=== PATIENT | female | born 1970 | race Caucasian/White ===

== ENCOUNTER 2016-06-16 01:19 | Inpatient (IN) | payer OTHER ==
[~2016-06-16] VITALS: Ht 165.1 cm; Wt 64.6 kg
[2016-06-16] VITALS (55 sets, daily range): BP systolic 72–122; BP diastolic 35–83
[~2016-06-16 01:19] MED LIST: ALPR1TAB2 PO; AMYL1CAP PO; ETOMIDATE 2MG/ML 10ML VIAL IV ONE; FURO-151 PO; INSLAN SQ; INSU100C3 SQ; OXYC-100 PO; PREG75CA PO; PROT40 PO; STERILE WATER FOR INJECTION 10ML VIAL ONE; SUCCINYLCHOLINE CHLORIDE 200MG/10ML VIAL IV ONE; VECURONIUM BROMIDE 10 MG/VIAL IV ONE; WARF5TAB76 PO; WARF7.5T22 PO
[2016-06-16] MEDS ORDERED: PROPOFOL 10MG/ML 100ML 100 ML IV ONE ×2 (01:54→02:00)
[2016-06-16] MEDS ORDERED: SODIUM CHLORIDE 0.9% 1,000 ML IV ONE ×2 (01:55→04:45)
[2016-06-16] MEDS ORDERED: ONDANSETRON HCL 4MG/2ML VIAL IV STA (01:55)
[2016-06-16] MEDS ORDERED: SUCCINYLCHOLINE CHLORIDE 200MG/10ML VIAL IV ONE (02:00)
[2016-06-16] MEDS ORDERED: ETOMIDATE 2MG/ML 10ML VIAL IV ONE (02:00)
[2016-06-16 02:18] LABS: BG BASE EXCESS -6.7 mmol/L (-2.0-2.0); BG CARBOXYHEMOGLOBIN 0.1 % (0.5-1.5); BG FRACTION INSPIRED OXYGEN 100; BG HCO3 ACT 19.6 mmol/L (22.0-26.0); BG METHEMOGLOBIN 0.2 % (0.0-1.5); BG OXYHEMOGLOBIN 96.7 % (94.0-97.0); BG PCO2 41.9 mmHg (35.0-45.0); BG PH 7.287 (7.350-7.450); BG PO2 262.9 mmHg (75.0-100.0); BG SAMPLE SITE RIGHT BRACHIAL; BG TIDAL VOLUME(mL) 500 mL; BG TOTAL HEMOGLOBIN 10.8 g/dL (12.0-18.0); BG VENT MODE VENT - A/C; BG VENT RATE 14 set
[2016-06-16 02:19] LABS: CLARITY URINE CLEAR (CLEAR); COLOR URINE YELLOW (YELLOW); GLUCOSE URINE NEGATIVE (NEGATIVE); KETONES URINE NEGATIVE (NEGATIVE); LEUKOCYTE ESTERASE URINE NEGATIVE (NEGATIVE); NITRITE URINE NEGATIVE (NEGATIVE); OCCULT BLOOD URINE NEGATIVE (NEGATIVE); PROTEIN URINE NEGATIVE (NEGATIVE); UROBILINOGEN URINE 0.2 E.U./dL (0.2-1.0)
[2016-06-16 02:25] LABS: BASOPHILS % 0.2 % (0.0-2.0); EOSINOPHILS % 0.6 % (0.0-5.0); HEMOGLOBIN. 10.4 g/dL (12.0-16.0); LYMPHOCYTES % 10.2 % (20.0-50.0); MEAN CORPUSCULAR HEMOGLOBIN 31.3 pg (28.0-32.0); MEAN CORPUSCULAR HGB CONC 32.7 g/dL (31.0-37.0); MEAN CORPUSCULAR VOLUME 95.8 fL (81.0-99.0); MEAN PLATELET VOLUME 9.4 fl (7.4-10.4); MONOCYTES % 5.4 % (2.0-8.0); NEUTROPHILS % 83.6 % (40.0-76.0); PLATELET 108 x1000/uL (130-400); RED BLOOD CELL COUNT 3.34 mill/uL (4.2-5.4); RED CELL DISTRIBUTION WIDTH 14.8 % (11.6-14.6); WHITE BLOOD COUNT 5.5 x1000/uL (4.5-11.0)
[2016-06-16 02:28] LABS: INR 1.7; PROTHROMBIN TIME 17.3 sec
[2016-06-16 02:31] LABS: AMMONIA 75 uMol/L (<32)
[2016-06-16 02:35] LABS: ACETAMINOPHEN 7 ug/mL (10-30); ALANINE AMINOTRANSFERASE 63 IU/L (13-61); ALBUMIN 3.1 g/dL (3.4-5.0); ANION GAP 13; CALCIUM 7.7 mg/dL (8.5-10.1); CARBON DIOXIDE 20 mEq/L (21-32); CHLORIDE 110 mEq/L (98-107); ETHANOL BLOOD < 10 mg/dL; INDEX HEMOLYSI 2 (1-3); INDEX ICTERIC 1 (1-4); INDEX LIPEMIC 1 (1-3); TROPONIN I 0.25 ng/mL (0.00-0.04); UREA NITROGEN BLOOD 13 mg/dL (7-21); eGFR > 60 mL/min (>60)
[2016-06-16 02:44] LABS: THYROID STIMULATING HORMONE 0.83 uIU/mL (0.36-3.74)
[2016-06-16 02:47] LABS: CREATINE KINASE 4500 IU/L (26-192); LACTIC ACID 2.4 mmol/L (0.4-2.0)
[2016-06-16 03:09] LABS: *AMPHETAMINES SCREEN URINE NEGATIVE (NEGATIVE); *BARBITURATES SCREEN URINE NEGATIVE (NEGATIVE); *COCAINE SCREEN URINE NEGATIVE (NEGATIVE); CANNABINOID URINE SCREEN NEGATIVE (NEGATIVE); ECSTASY MDMA SCREEN URINE NEGATIVE (NEGATIVE); METHADONE URINE SCREEN NEGATIVE (NEGATIVE); PHENCYCLIDINE URINE SCREEN NEGATIVE (NEGATIVE)
[2016-06-16 03:23] LABS: *BENZODIAZEPINES SCREEN URINE PRESUMTIVE POSITIVE (NEGATIVE); OPIATES URINE SCREEN PRESUMTIVE POSITIVE (NEGATIVE)
[2016-06-16] MEDS ORDERED: MAGNESIUM/ALUMINUM HYDROXIDE/SIMETHICONE 30ML UDC PO PRN (04:45)
[2016-06-16] MEDS ORDERED: ONDANSETRON HCL 4MG/2ML VIAL IV PRN (04:45)
[2016-06-16] MEDS ORDERED: GUAIFENESIN 200MG/10ML SUGAR FREE UDC PO PRN (04:45)
[2016-06-16] MEDS ORDERED: DOCUSATE SODIUM 100MG CAPSULE PO PRN (04:45)
[2016-06-16 05:32] LABS: CREATINE KINASE MB FRACTION 62.3 ng/mL (0.5-3.6); TROPONIN I 0.16 ng/mL (0.00-0.04)
[2016-06-16] MEDS ORDERED: DEXTROSE 50% WATER 50ML SYRINGE IV ONE (07:09)
[2016-06-16] MEDS ORDERED: DEXTROSE 50% WATER 50ML SYRINGE IV PRN ×2 (07:15)
[2016-06-16] MEDS ORDERED: PIPERACILLIN/TAZ 3.375G PREMIX 50 ML IV SCH (08:00)
[2016-06-16] MEDS ORDERED: VANCOMYCIN 1 G PREMIX 200 ML IV SCH (08:00)
[2016-06-16] MEDS: IPRATROPIUM/ALBUTEROL 0.5-3(2.5)MG/3ML NEB INH SCH ×4 (08:12→20:51)
[2016-06-16] MEDS: PROPOFOL 10MG/ML 100ML 100 ML IV PRN ×4 (08:16→21:27)
[2016-06-16] MEDS: PANTOPRAZOLE SODIUM 40 MG/VIAL IV SCH (08:22)
[2016-06-16] MEDS: ENOXAPARIN 40MG/0.4ML SYR SUBCUT SCH (08:22)
[2016-06-16] MEDS: DEXT 5%/0.45% NACL 1000ML 1,000 ML IV SCH ×4 (08:26→16:28)
[2016-06-16 08:31] LABS: BG BASE EXCESS -4.7 mmol/L (-2.0-2.0); BG CARBOXYHEMOGLOBIN 0.2 % (0.5-1.5); BG DEOXYHEMOGLOBIN 2.8 % (0.0-5.0); BG FRACTION INSPIRED OXYGEN 60; BG HCO3 ACT 19.2 mmol/L (22.0-26.0); BG METHEMOGLOBIN 0.3 % (0.0-1.5); BG OXYGEN SATURATION 97.2 % (92.0-98.5); BG OXYHEMOGLOBIN 96.7 % (94.0-97.0); BG PCO2 31.4 mmHg (35.0-45.0); BG PH 7.405 (7.350-7.450); BG PO2 269.2 mmHg (75.0-100.0); BG SAMPLE SITE RIGHT RADIAL; BG TIDAL VOLUME(mL) 500 mL; BG VENT MODE VENT - A/C; BG VENT RATE 14 set
[2016-06-16 09:32] LABS: T4 FREE 0.96 ng/dL (0.76-1.46)
[2016-06-16] MEDS: BLOOD SUGAR DIAGNOSTIC STRIP TEST SCH ×2 (12:00→18:00)
[2016-06-16] MEDS ORDERED: BLOOD SUGAR DIAGNOSTIC STRIP TEST SCH (12:00)
[2016-06-16] MEDS: INSULIN LISPRO 100 UNITS/ML SUBCUT SCH ×2 (12:00→18:21)
[2016-06-16 12:59] LABS: HEPATITIS B SURFACE ANTIGEN NEGATIVE
[2016-06-16 13:19] LABS: HEPATITIS B CORE AB IGM NEGATIVE; HEPATITIS C VIR.AB < 0.02 INDEXVAL (0.00-0.80)
[2016-06-16 13:21] LABS: HEPATITIS A AB IGM NEGATIVE (NEGATIVE)
[2016-06-16] MEDS: PIPERACILLIN/TAZ 3.375G PREMIX 50 ML IV SCH ×2 (13:37→21:24)
[2016-06-16] MEDS: ACETAMINOPHEN 325MG TABLET PO PRN (14:43)
[2016-06-16] MEDS ORDERED: FOLIC ACID 1 MG, THIAMINE HCL 100 MG, MVI, ADULT NO.1 10 ML in DEXTROSE 5% WATER 1,000 ML IV ONE ×4 (16:00)
[2016-06-16] MEDS ORDERED: SODIUM CHLORIDE 0.9% 500 ML IV NR (16:15)
[2016-06-16] MEDS: FENTANYL CITRATE/PF 500 MCG in SODIUM CHLORIDE 0.9% 40 ML IV PRN ×2 (16:29→22:07)
[2016-06-16] MEDS: VANCOMYCIN 1250MG in DEXTROSE 5% WATER 250ML IV SCH (17:48)
[2016-06-16 18:10] LABS: TROPONIN I 0.13 ng/mL (0.00-0.04)
[2016-06-16 18:16] LABS: CREATINE KINASE MB FRACTION 20.4 ng/mL (0.5-3.6)
[2016-06-16] MEDS ORDERED: NOREPINEPHRINE 8 MG in DEXT 5% WATER 242 ML IV PRN (18:58)
[2016-06-17] VITALS (94 sets, daily range): BP systolic 46–127; BP diastolic 22–97
[2016-06-17] MEDS: INSULIN LISPRO 100 UNITS/ML SUBCUT SCH ×5 (00:05→23:59)
[2016-06-17] MEDS: BLOOD SUGAR DIAGNOSTIC STRIP TEST SCH ×5 (00:12→23:56)
[2016-06-17] MEDS: IPRATROPIUM/ALBUTEROL 0.5-3(2.5)MG/3ML NEB INH SCH ×7 (00:49→23:30)
[2016-06-17] MEDS: FENTANYL CITRATE/PF 500 MCG in SODIUM CHLORIDE 0.9% 40 ML IV PRN ×4 (02:04→17:45)
[2016-06-17] MEDS: PROPOFOL 10MG/ML 100ML 100 ML IV PRN ×6 (03:02→23:43)
[2016-06-17] MEDS: VANCOMYCIN 1250MG in DEXTROSE 5% WATER 250ML IV SCH ×2 (05:28→17:53)
[2016-06-17] MEDS: PIPERACILLIN/TAZ 3.375G PREMIX 50 ML IV SCH (05:28)
[2016-06-17] MEDS: DEXT 5%/0.45% NACL 1000ML 1,000 ML IV SCH ×4 (05:48→20:16)
[2016-06-17 06:07] LABS: ALANINE AMINOTRANSFERASE 42 IU/L (13-61); ALBUMIN 2.4 g/dL (3.4-5.0); ANION GAP 13; BILIRUBIN DIRECT 0.2 mg/dL (0.0-0.2); CALCIUM 7.4 mg/dL (8.5-10.1); CARBON DIOXIDE 23 mEq/L (21-32); CHLORIDE 110 mEq/L (98-107); HDL CHOLESTEROL 23 mg/dL (40-59); INDEX HEMOLYSI 1 (1-3); INDEX ICTERIC 1 (1-4); INDEX LIPEMIC 1 (1-3); LDL CHOLESTEROL 31 mg/dL (5-100); TRIGLYCERIDE 65 mg/dL (0-150); UREA NITROGEN BLOOD 8 mg/dL (7-21); eGFR > 60 mL/min (>60)
[2016-06-17 07:25] LABS: BG BASE EXCESS -2.4 mmol/L (-2.0-2.0); BG CARBOXYHEMOGLOBIN 0.7 % (0.5-1.5); BG DEOXYHEMOGLOBIN 6.1 % (0.0-5.0); BG HCO3 ACT 21.3 mmol/L (22.0-26.0); BG METHEMOGLOBIN 0.2 % (0.0-1.5); BG OXYGEN SATURATION 93.8 % (92.0-98.5); BG PCO2 31.9 mmHg (35.0-45.0); BG PH 7.442 (7.350-7.450); BG PO2 77.2 mmHg (75.0-100.0); BG SAMPLE SITE RIGHT BRACHIAL; BG TIDAL VOLUME(mL) 500 mL; BG TOTAL HEMOGLOBIN 7.9 g/dL (12.0-18.0); BG VENT MODE VENT - A/C; BG VENT RATE 10 set
[2016-06-17 07:54] LABS: BASOPHILS % 0.6 % (0.0-2.0); EOSINOPHILS % 1.5 % (0.0-5.0); HEMOGLOBIN. 8.7 g/dL (12.0-16.0); LYMPHOCYTES % 22.2 % (20.0-50.0); MEAN CORPUSCULAR HEMOGLOBIN 31.1 pg (28.0-32.0); MEAN CORPUSCULAR HGB CONC 32.9 g/dL (31.0-37.0); MEAN CORPUSCULAR VOLUME 94.7 fL (81.0-99.0); MEAN PLATELET VOLUME 9.4 fl (7.4-10.4); MONOCYTES % 9.1 % (2.0-8.0); NEUTROPHILS % 66.6 % (40.0-76.0); PLATELET 81 x1000/uL (130-400); RED BLOOD CELL COUNT 2.79 mill/uL (4.2-5.4); RED CELL DISTRIBUTION WIDTH 15.4 % (11.6-14.6); WHITE BLOOD COUNT 5.3 x1000/uL (4.5-11.0)
[2016-06-17 08:04] LABS: HEMATOCRIT. 26.4 % (36.0-48.0)
[2016-06-17 08:18] LABS: MAGNESIUM 1.9 mg/dL (1.8-2.4); PHOSPHORUS 2.4 mg/dL (2.5-4.9)
[2016-06-17] MEDS: ENOXAPARIN 40MG/0.4ML SYR SUBCUT SCH (09:00)
[2016-06-17] MEDS ORDERED: CEFEPIME 1,000 MG in DEXTROSE 5% WATER 50 ML IV SCH (09:45)
[2016-06-17] MEDS: PANTOPRAZOLE SODIUM 40 MG/VIAL IV SCH (10:10)
[2016-06-17] MEDS: QUETIAPINE FUMARATE 25MG TABLET PO SCH ×2 (10:12→20:14)
[2016-06-17] MEDS: MEROPENEM 1000MG in NORMAL SALINE 100ML IV SCH ×2 (12:05→20:14)
[2016-06-18] VITALS (92 sets, daily range): BP systolic 89–151; BP diastolic 48–86
[2016-06-18] MEDS: FENTANYL CITRATE/PF 500 MCG in SODIUM CHLORIDE 0.9% 40 ML IV PRN ×4 (00:14→19:38)
[2016-06-18] MEDS: IPRATROPIUM/ALBUTEROL 0.5-3(2.5)MG/3ML NEB INH SCH ×6 (03:42→23:33)
[2016-06-18] MEDS: MEROPENEM 1000MG in NORMAL SALINE 100ML IV SCH ×3 (04:29→19:42)
[2016-06-18] MEDS: PROPOFOL 10MG/ML 100ML 100 ML IV PRN ×4 (04:30→23:16)
[2016-06-18] MEDS: DEXT 5%/0.45% NACL 1000ML 1,000 ML IV SCH ×6 (04:30→18:09)
[2016-06-18] MEDS: BLOOD SUGAR DIAGNOSTIC STRIP TEST SCH ×4 (05:06→23:20)
[2016-06-18] MEDS: VANCOMYCIN 1250MG in DEXTROSE 5% WATER 250ML IV SCH ×3 (05:16→21:04)
[2016-06-18] MEDS: INSULIN LISPRO 100 UNITS/ML SUBCUT SCH ×4 (05:16→23:35)
[2016-06-18 05:53] LABS: BASOPHILS % 0.3 % (0.0-2.0); EOSINOPHILS % 3.5 % (0.0-5.0); HEMATOCRIT. 24.5 % (36.0-48.0); HEMOGLOBIN. 8.2 g/dL (12.0-16.0); LYMPHOCYTES % 27.1 % (20.0-50.0); MEAN CORPUSCULAR HEMOGLOBIN 32.2 pg (28.0-32.0); MEAN CORPUSCULAR HGB CONC 33.5 g/dL (31.0-37.0); MEAN PLATELET VOLUME 9.3 fl (7.4-10.4); MONOCYTES % 8.7 % (2.0-8.0); NEUTROPHILS % 60.4 % (40.0-76.0); PLATELET 76 x1000/uL (130-400); RED BLOOD CELL COUNT 2.55 mill/uL (4.2-5.4); WHITE BLOOD COUNT 4.1 x1000/uL (4.5-11.0)
[2016-06-18 06:18] LABS: ALANINE AMINOTRANSFERASE 36 IU/L (13-61); ALBUMIN 2.2 g/dL (3.4-5.0); ANION GAP 10; BILIRUBIN DIRECT 0.2 mg/dL (0.0-0.2); CALCIUM 7.2 mg/dL (8.5-10.1); CARBON DIOXIDE 25 mEq/L (21-32); CHLORIDE 111 mEq/L (98-107); INDEX HEMOLYSI 1 (1-3); INDEX ICTERIC 1 (1-4); INDEX LIPEMIC 1 (1-3); UREA NITROGEN BLOOD 6 mg/dL (7-21); VANCOMYCIN TROUGH 8.8 ug/mL (5.0-10.0); eGFR > 60 mL/min (>60)
[2016-06-18] MEDS: PANTOPRAZOLE SODIUM 40 MG/VIAL IV SCH (08:54)
[2016-06-18] MEDS: QUETIAPINE FUMARATE 25MG TABLET PO SCH ×2 (08:55→20:50)
[2016-06-18] MEDS: ENOXAPARIN 40MG/0.4ML SYR SUBCUT SCH (09:00)
[2016-06-18] MEDS: ACETYLCYSTEINE 100MG/ML 10% VIAL 4ML INH SCH ×4 (11:54→23:33)
[2016-06-18] MEDS: SODIUM CHLORIDE 0.45% 1,000 ML IV SCH (20:50)
[2016-06-19] VITALS (46 sets, daily range): BP systolic 91–130; BP diastolic 52–85
[2016-06-19] MEDS: FENTANYL CITRATE/PF 500 MCG in SODIUM CHLORIDE 0.9% 40 ML IV PRN ×4 (03:07→20:06)
[2016-06-19] MEDS: PROPOFOL 10MG/ML 100ML 100 ML IV PRN ×6 (03:08→23:36)
[2016-06-19] MEDS: ACETYLCYSTEINE 100MG/ML 10% VIAL 4ML INH SCH ×5 (03:51→20:19)
[2016-06-19] MEDS: IPRATROPIUM/ALBUTEROL 0.5-3(2.5)MG/3ML NEB INH SCH ×5 (03:51→20:19)
[2016-06-19] MEDS: VANCOMYCIN 1250MG in DEXTROSE 5% WATER 250ML IV SCH ×2 (05:00→14:13)
[2016-06-19] MEDS: MEROPENEM 1000MG in NORMAL SALINE 100ML IV SCH ×2 (05:00→12:12)
[2016-06-19 05:48] LABS: BASOPHILS % 0.2 % (0.0-2.0); EOSINOPHILS % 5.2 % (0.0-5.0); HEMATOCRIT. 24.7 % (36.0-48.0); HEMOGLOBIN. 8.1 g/dL (12.0-16.0); LYMPHOCYTES % 26.9 % (20.0-50.0); MEAN CORPUSCULAR HEMOGLOBIN 31.3 pg (28.0-32.0); MEAN CORPUSCULAR VOLUME 94.6 fL (81.0-99.0); MEAN PLATELET VOLUME 9.2 fl (7.4-10.4); MONOCYTES % 6.7 % (2.0-8.0); PLATELET 82 x1000/uL (130-400); RED BLOOD CELL COUNT 2.61 mill/uL (4.2-5.4); RED CELL DISTRIBUTION WIDTH 14.7 % (11.6-14.6); WHITE BLOOD COUNT 3.4 x1000/uL (4.5-11.0)
[2016-06-19] MEDS: INSULIN LISPRO 100 UNITS/ML SUBCUT SCH ×3 (06:00→17:45)
[2016-06-19] MEDS: BLOOD SUGAR DIAGNOSTIC STRIP TEST SCH ×3 (06:33→17:49)
[2016-06-19 06:55] LABS: ALANINE AMINOTRANSFERASE 27 IU/L (13-61); ALBUMIN 2.2 g/dL (3.4-5.0); ANION GAP 12; BILIRUBIN DIRECT 0.3 mg/dL (0.0-0.2); CALCIUM 7.6 mg/dL (8.5-10.1); CARBON DIOXIDE 26 mEq/L (21-32); CHLORIDE 110 mEq/L (98-107); INDEX HEMOLYSI 1 (1-3); INDEX ICTERIC 1 (1-4); INDEX LIPEMIC 1 (1-3); TRIGLYCERIDE 80 mg/dL (0-150); eGFR > 60 mL/min (>60)
[2016-06-19 06:57] LABS: UREA NITROGEN BLOOD 4 mg/dL (7-21)
[2016-06-19] MEDS: ENOXAPARIN 40MG/0.4ML SYR SUBCUT SCH (09:00)
[2016-06-19] MEDS: QUETIAPINE FUMARATE 25MG TABLET PO SCH ×2 (09:23→20:00)
[2016-06-19] MEDS: SODIUM CHLORIDE 0.45% 1,000 ML IV SCH (09:23)
[2016-06-19] MEDS: PANTOPRAZOLE SODIUM 40 MG/VIAL IV SCH (09:23)
[2016-06-19 11:06] LABS: BG BASE EXCESS -1.4 mmol/L (-2.0-2.0); BG CARBOXYHEMOGLOBIN 0.3 % (0.5-1.5); BG DEOXYHEMOGLOBIN 5.3 % (0.0-5.0); BG FRACTION INSPIRED OXYGEN 30; BG HCO3 ACT 22.6 mmol/L (22.0-26.0); BG METHEMOGLOBIN 0.3 % (0.0-1.5); BG OXYGEN SATURATION 94.7 % (92.0-98.5); BG OXYHEMOGLOBIN 94.1 % (94.0-97.0); BG PCO2 34.8 mmHg (35.0-45.0); BG PO2 88.2 mmHg (75.0-100.0); BG SAMPLE SITE RIGHT RADIAL; BG TIDAL VOLUME(mL) 500 mL; BG TOTAL HEMOGLOBIN 8.3 g/dL (12.0-18.0); BG VENT MODE VENT - A/C; BG VENT RATE 10 set
[2016-06-19] MEDS: LEVOFLOXACIN 500MG PREMIX 100 ML IV SCH (17:05)
[2016-06-19] MEDS: DOCUSATE SODIUM 250MG CAPSULE PO SCH (18:41)
[2016-06-19] MEDS: METRONIDAZOLE 500 MG PREMIX 100 ML IV SCH (20:00)
[2016-06-20] VITALS (41 sets, daily range): BP systolic 87–145; BP diastolic 48–84
[2016-06-20] MEDS: BLOOD SUGAR DIAGNOSTIC STRIP TEST SCH ×5 (00:05→23:39)
[2016-06-20] MEDS: INSULIN LISPRO 100 UNITS/ML SUBCUT SCH ×5 (00:11→23:40)
[2016-06-20] MEDS: IPRATROPIUM/ALBUTEROL 0.5-3(2.5)MG/3ML NEB INH SCH ×6 (00:14→20:45)
[2016-06-20] MEDS: SODIUM CHLORIDE 0.45% 1,000 ML IV SCH ×2 (00:14→12:34)
[2016-06-20] MEDS: ACETYLCYSTEINE 100MG/ML 10% VIAL 4ML INH SCH ×6 (00:15→20:46)
[2016-06-20] MEDS: FENTANYL CITRATE/PF 500 MCG in SODIUM CHLORIDE 0.9% 40 ML IV PRN ×2 (01:39→07:42)
[2016-06-20] MEDS: PROPOFOL 10MG/ML 100ML 100 ML IV PRN ×3 (04:27→21:31)
[2016-06-20 05:38] LABS: BASOPHILS % 0.4 % (0.0-2.0); EOSINOPHILS % 4.4 % (0.0-5.0); HEMOGLOBIN. 8.3 g/dL (12.0-16.0); LYMPHOCYTES % 25.3 % (20.0-50.0); MEAN CORPUSCULAR HEMOGLOBIN 31.3 pg (28.0-32.0); MEAN CORPUSCULAR HGB CONC 33.2 g/dL (31.0-37.0); MEAN CORPUSCULAR VOLUME 94.2 fL (81.0-99.0); MEAN PLATELET VOLUME 8.8 fl (7.4-10.4); MONOCYTES % 8.5 % (2.0-8.0); NEUTROPHILS % 61.4 % (40.0-76.0); PLATELET 79 x1000/uL (130-400); RED BLOOD CELL COUNT 2.65 mill/uL (4.2-5.4); RED CELL DISTRIBUTION WIDTH 14.4 % (11.6-14.6); WHITE BLOOD COUNT 3.3 x1000/uL (4.5-11.0)
[2016-06-20 05:41] LABS: INR 1.2; PROTHROMBIN TIME 12.6 sec
[2016-06-20 06:05] LABS: ANION GAP 12; CALCIUM 7.9 mg/dL (8.5-10.1); CARBON DIOXIDE 27 mEq/L (21-32); CHLORIDE 107 mEq/L (98-107); INDEX HEMOLYSI 1 (1-3); INDEX ICTERIC 1 (1-4); INDEX LIPEMIC 1 (1-3); TRIGLYCERIDE 91 mg/dL (0-150); UREA NITROGEN BLOOD 6 mg/dL (7-21); eGFR > 60 mL/min (>60)
[2016-06-20 08:05] LABS: BG BASE EXCESS 2.8 mmol/L (-2.0-2.0); BG CARBOXYHEMOGLOBIN 0.3 % (0.5-1.5); BG DEOXYHEMOGLOBIN 3.6 % (0.0-5.0); BG FRACTION INSPIRED OXYGEN 30; BG HCO3 ACT 27.2 mmol/L (22.0-26.0); BG METHEMOGLOBIN 0.3 % (0.0-1.5); BG OXYGEN SATURATION 96.4 % (92.0-98.5); BG OXYHEMOGLOBIN 95.8 % (94.0-97.0); BG PCO2 40.8 mmHg (35.0-45.0); BG PH 7.441 (7.350-7.450); BG PO2 132.6 mmHg (75.0-100.0); BG SAMPLE SITE LEFT BRACHIAL; BG TIDAL VOLUME(mL) 550 mL; BG VENT MODE VENT - A/C; BG VENT RATE 10 set
[2016-06-20] MEDS: QUETIAPINE FUMARATE 25MG TABLET PO SCH ×2 (08:40→20:09)
[2016-06-20] MEDS: METRONIDAZOLE 500 MG PREMIX 100 ML IV SCH ×2 (08:40→20:09)
[2016-06-20] MEDS: PANTOPRAZOLE SODIUM 40 MG/VIAL IV SCH (08:40)
[2016-06-20] MEDS: DOCUSATE SODIUM 250MG CAPSULE PO SCH ×2 (08:40→17:00)
[2016-06-20] MEDS: ENOXAPARIN 40MG/0.4ML SYR SUBCUT SCH (09:00)
[2016-06-20] MEDS ORDERED: MORPHINE SULFATE 2 MG/ML CPJ (NOT FOR IM USE) IV PRN ×2 (09:15)
[2016-06-20] MEDS: LORAZEPAM 2MG/ML CPJ IV PRN ×2 (10:25→23:05)
[2016-06-20 11:30] LABS: INDEX HEMOLYSI 1 (1-3); INDEX ICTERIC 1 (1-4); INDEX LIPEMIC 1 (1-3); IRON 35 ug/dL (50-175); TOTAL IRON BINDING CAPACITY 238 ug/dL (250-450)
[2016-06-20 12:00] LABS: FOLIC ACID (FOLATE) SERUM 19.8 ng/mL (>5.38)
[2016-06-20] MEDS: OXYCODONE HCL/ACETAMINOPHEN 5/325MG TABLET PO PRN ×2 (15:04→20:31)
[2016-06-20] MEDS: LEVOFLOXACIN 500MG PREMIX 100 ML IV SCH (17:20)
[2016-06-21] VITALS (56 sets, daily range): BP systolic 91–142; BP diastolic 51–90
[2016-06-21] MEDS ORDERED: PROPOFOL 10MG/ML 100ML 100 ML IV PRN
[2016-06-21] MEDS: ACETYLCYSTEINE 100MG/ML 10% VIAL 4ML INH SCH ×6 (00:44→20:14)
[2016-06-21] MEDS: IPRATROPIUM/ALBUTEROL 0.5-3(2.5)MG/3ML NEB INH SCH ×6 (00:45→20:13)
[2016-06-21] MEDS: SODIUM CHLORIDE 0.45% 1,000 ML IV SCH ×2 (03:36→16:52)
[2016-06-21] MEDS: OXYCODONE HCL/ACETAMINOPHEN 5/325MG TABLET PO PRN ×3 (03:54→13:36)
[2016-06-21] MEDS: BLOOD SUGAR DIAGNOSTIC STRIP TEST SCH ×4 (05:17→23:28)
[2016-06-21] MEDS: INSULIN LISPRO 100 UNITS/ML SUBCUT SCH ×4 (05:17→23:31)
[2016-06-21] MEDS: LORAZEPAM 2MG/ML CPJ IV PRN ×2 (06:26→22:14)
[2016-06-21] MEDS: PANTOPRAZOLE SODIUM 40 MG/VIAL IV SCH (08:20)
[2016-06-21] MEDS: QUETIAPINE FUMARATE 25MG TABLET PO SCH ×2 (08:21→20:04)
[2016-06-21] MEDS: METRONIDAZOLE 500 MG PREMIX 100 ML IV SCH ×2 (08:21→20:04)
[2016-06-21] MEDS: DOCUSATE SODIUM 250MG CAPSULE PO SCH (08:23)
[2016-06-21] MEDS: ENOXAPARIN 40MG/0.4ML SYR SUBCUT SCH (08:24)
[2016-06-21 08:28] LABS: BASOPHILS % 0.4 % (0.0-2.0); EOSINOPHILS % 4.1 % (0.0-5.0); LYMPHOCYTES % 24.4 % (20.0-50.0); MEAN CORPUSCULAR HEMOGLOBIN 31.2 pg (28.0-32.0); MEAN CORPUSCULAR HGB CONC 33.4 g/dL (31.0-37.0); MEAN CORPUSCULAR VOLUME 93.4 fL (81.0-99.0); MEAN PLATELET VOLUME 9.4 fl (7.4-10.4); MONOCYTES % 8.3 % (2.0-8.0); NEUTROPHILS % 62.8 % (40.0-76.0); PLATELET 81 x1000/uL (130-400); RED BLOOD CELL COUNT 2.57 mill/uL (4.2-5.4); RED CELL DISTRIBUTION WIDTH 14.2 % (11.6-14.6); WHITE BLOOD COUNT 2.8 x1000/uL (4.5-11.0)
[2016-06-21] MEDS: PROPOFOL 10MG/ML 100ML 100 ML IV PRN ×3 (10:31→23:18)
[2016-06-21 10:55] LABS: BG BASE EXCESS -0.4 mmol/L (-2.0-2.0); BG CARBOXYHEMOGLOBIN 0.3 % (0.5-1.5); BG FRACTION INSPIRED OXYGEN 30; BG HCO3 ACT 23.4 mmol/L (22.0-26.0); BG METHEMOGLOBIN 0.3 % (0.0-1.5); BG OXYHEMOGLOBIN 95.4 % (94.0-97.0); BG PCO2 34.4 mmHg (35.0-45.0); BG PO2 117.3 mmHg (75.0-100.0); BG SAMPLE SITE LEFT RADIAL; BG TIDAL VOLUME(mL) 500 mL; BG TOTAL HEMOGLOBIN 8.4 g/dL (12.0-18.0); BG VENT MODE VENT - A/C; BG VENT RATE 10 set
[2016-06-21 11:16] LABS: ANION GAP 13; CALCIUM 7.9 mg/dL (8.5-10.1); CARBON DIOXIDE 26 mEq/L (21-32); CHLORIDE 110 mEq/L (98-107); INDEX HEMOLYSI 1 (1-3); INDEX ICTERIC 1 (1-4); INDEX LIPEMIC 1 (1-3); UREA NITROGEN BLOOD 9 mg/dL (7-21); eGFR > 60 mL/min (>60)
[2016-06-21] MEDS: LEVOFLOXACIN 500MG PREMIX 100 ML IV SCH (16:54)
[2016-06-21] MEDS ORDERED: DOCUSATE SODIUM SUGAR FREE 100MG/10ML UDC PO SCH (17:00)
[2016-06-22] VITALS (58 sets, daily range): BP systolic 106–154; BP diastolic 64–93
[2016-06-22] MEDS: ACETYLCYSTEINE 100MG/ML 10% VIAL 4ML INH SCH ×7 (00:09→23:50)
[2016-06-22] MEDS: IPRATROPIUM/ALBUTEROL 0.5-3(2.5)MG/3ML NEB INH SCH ×7 (00:09→23:50)
[2016-06-22] MEDS: PROPOFOL 10MG/ML 100ML 100 ML IV PRN ×3 (03:05→20:51)
[2016-06-22 05:00] LABS: BASOPHILS % 0.7 % (0.0-2.0); EOSINOPHILS % 6.5 % (0.0-5.0); HEMATOCRIT. 23.5 % (36.0-48.0); HEMOGLOBIN. 7.7 g/dL (12.0-16.0); LYMPHOCYTES % 23.9 % (20.0-50.0); MEAN CORPUSCULAR HEMOGLOBIN 30.7 pg (28.0-32.0); MEAN CORPUSCULAR HGB CONC 32.8 g/dL (31.0-37.0); MEAN CORPUSCULAR VOLUME 93.7 fL (81.0-99.0); MEAN PLATELET VOLUME 8.8 fl (7.4-10.4); MONOCYTES % 8.4 % (2.0-8.0); NEUTROPHILS % 60.5 % (40.0-76.0); PLATELET 83 x1000/uL (130-400); RED BLOOD CELL COUNT 2.51 mill/uL (4.2-5.4); RED CELL DISTRIBUTION WIDTH 14.2 % (11.6-14.6); WHITE BLOOD COUNT 2.4 x1000/uL (4.5-11.0)
[2016-06-22] MEDS: SODIUM CHLORIDE 0.45% 1,000 ML IV SCH ×2 (05:09→18:15)
[2016-06-22] MEDS: BLOOD SUGAR DIAGNOSTIC STRIP TEST SCH ×3 (05:17→18:17)
[2016-06-22 05:22] LABS: ANION GAP 11; CALCIUM 7.9 mg/dL (8.5-10.1); CARBON DIOXIDE 27 mEq/L (21-32); CHLORIDE 109 mEq/L (98-107); INDEX HEMOLYSI 1 (1-3); INDEX ICTERIC 1 (1-4); INDEX LIPEMIC 1 (1-3); TRIGLYCERIDE 119 mg/dL (0-150); UREA NITROGEN BLOOD 12 mg/dL (7-21); eGFR > 60 mL/min (>60)
[2016-06-22] MEDS: INSULIN LISPRO 100 UNITS/ML SUBCUT SCH ×3 (05:23→18:41)
[2016-06-22] MEDS: OXYCODONE HCL/ACETAMINOPHEN 5/325MG TABLET PO PRN (05:38)
[2016-06-22] MEDS: ENOXAPARIN 40MG/0.4ML SYR SUBCUT SCH (09:00)
[2016-06-22] MEDS: PANTOPRAZOLE SODIUM 40 MG/VIAL IV SCH (09:06)
[2016-06-22] MEDS: DOCUSATE SODIUM SUGAR FREE 100MG/10ML UDC NG SCH ×2 (09:07→18:13)
[2016-06-22] MEDS: QUETIAPINE FUMARATE 25MG TABLET PO SCH ×2 (09:07→20:52)
[2016-06-22] MEDS: METRONIDAZOLE 500 MG PREMIX 100 ML IV SCH ×2 (09:07→20:51)
[2016-06-22] MEDS: LORAZEPAM 2MG/ML CPJ IV PRN (09:48)
[2016-06-22] MEDS: ACETAMINOPHEN 325MG TABLET PO PRN (15:11)
[2016-06-22 15:32] LABS: BG BASE EXCESS -0.3 mmol/L (-2.0-2.0); BG CARBOXYHEMOGLOBIN 0.2 % (0.5-1.5); BG DEOXYHEMOGLOBIN 4.7 % (0.0-5.0); BG FRACTION INSPIRED OXYGEN 30; BG HCO3 ACT 23.2 mmol/L (22.0-26.0); BG METHEMOGLOBIN 0.3 % (0.0-1.5); BG OXYGEN SATURATION 95.3 % (92.0-98.5); BG OXYHEMOGLOBIN 94.8 % (94.0-97.0); BG PCO2 33.3 mmHg (35.0-45.0); BG PH 7.461 (7.350-7.450); BG PO2 91.3 mmHg (75.0-100.0); BG PRESSURE SUPPORT 10; BG SAMPLE SITE RIGHT RADIAL; BG TIDAL VOLUME(mL) 500 mL; BG TOTAL HEMOGLOBIN 8.8 g/dL (12.0-18.0); BG VENT MODE VENT - SIMV; BG VENT RATE 8 set
[2016-06-22] MEDS: LEVOFLOXACIN 500MG PREMIX 100 ML IV SCH (18:17)
[2016-06-23] VITALS (46 sets, daily range): BP systolic 99–160; BP diastolic 59–98
[2016-06-23] MEDS: BLOOD SUGAR DIAGNOSTIC STRIP TEST SCH ×4 (00:48→17:48)
[2016-06-23] MEDS: INSULIN LISPRO 100 UNITS/ML SUBCUT SCH ×5 (00:53→22:21)
[2016-06-23] MEDS: ACETAMINOPHEN 325MG TABLET PO PRN (01:11)
[2016-06-23] MEDS: PROPOFOL 10MG/ML 100ML 100 ML IV PRN ×2 (01:11→06:57)
[2016-06-23] MEDS: IPRATROPIUM/ALBUTEROL 0.5-3(2.5)MG/3ML NEB INH SCH ×5 (04:01→20:13)
[2016-06-23] MEDS: ACETYLCYSTEINE 100MG/ML 10% VIAL 4ML INH SCH ×3 (04:02→12:13)
[2016-06-23 06:08] LABS: BG BASE EXCESS 0.5 mmol/L (-2.0-2.0); BG CARBOXYHEMOGLOBIN 0.9 % (0.5-1.5); BG DEOXYHEMOGLOBIN 12.6 % (0.0-5.0); BG FRACTION INSPIRED OXYGEN 30; BG HCO3 ACT 24.1 mmol/L (22.0-26.0); BG METHEMOGLOBIN 0.3 % (0.0-1.5); BG OXYGEN SATURATION 87.2 % (92.0-98.5); BG OXYHEMOGLOBIN 86.2 % (94.0-97.0); BG PCO2 34.4 mmHg (35.0-45.0); BG PH 7.464 (7.350-7.450); BG PO2 54.5 mmHg (75.0-100.0); BG PRESSURE SUPPORT 10; BG SAMPLE SITE RIGHT RADIAL; BG TOTAL HEMOGLOBIN 8.2 g/dL (12.0-18.0); BG VENT MODE VENT - CPAP
[2016-06-23 07:36] LABS: BASOPHILS % 0.6 % (0.0-2.0); HEMATOCRIT. 24.4 % (36.0-48.0); HEMOGLOBIN. 8.1 g/dL (12.0-16.0); LYMPHOCYTES % 21.1 % (20.0-50.0); MEAN CORPUSCULAR HGB CONC 33.1 g/dL (31.0-37.0); MEAN CORPUSCULAR VOLUME 93.6 fL (81.0-99.0); MEAN PLATELET VOLUME 8.7 fl (7.4-10.4); MONOCYTES % 8.4 % (2.0-8.0); NEUTROPHILS % 66.9 % (40.0-76.0); PLATELET 88 x1000/uL (130-400); RED BLOOD CELL COUNT 2.61 mill/uL (4.2-5.4); RED CELL DISTRIBUTION WIDTH 14.3 % (11.6-14.6); WHITE BLOOD COUNT 2.7 x1000/uL (4.5-11.0)
[2016-06-23 07:47] LABS: ANION GAP 13; CARBON DIOXIDE 25 mEq/L (21-32); CHLORIDE 109 mEq/L (98-107); INDEX HEMOLYSI 1 (1-3); INDEX ICTERIC 1 (1-4); INDEX LIPEMIC 1 (1-3); UREA NITROGEN BLOOD 10 mg/dL (7-21); eGFR > 60 mL/min (>60)
[2016-06-23] MEDS ORDERED: DEXTROSE 50% WATER 50ML SYRINGE IV PRN (09:00)
[2016-06-23] MEDS: ENOXAPARIN 40MG/0.4ML SYR SUBCUT SCH (09:00)
[2016-06-23] MEDS: QUETIAPINE FUMARATE 25MG TABLET PO SCH ×2 (09:17→20:29)
[2016-06-23] MEDS: PANTOPRAZOLE SODIUM 40 MG/VIAL IV SCH (09:17)
[2016-06-23] MEDS: SODIUM CHLORIDE 0.45% 1,000 ML IV SCH (09:18)
[2016-06-23] MEDS: METRONIDAZOLE 500 MG PREMIX 100 ML IV SCH ×2 (09:18→20:29)
[2016-06-23] MEDS: DOCUSATE SODIUM SUGAR FREE 100MG/10ML UDC NG SCH ×2 (09:18→16:18)
[2016-06-23 11:26] LABS: BG BASE EXCESS 0.1 mmol/L (-2.0-2.0); BG CARBOXYHEMOGLOBIN 0.3 % (0.5-1.5); BG DEOXYHEMOGLOBIN 2.8 % (0.0-5.0); BG FRACTION INSPIRED OXYGEN 40; BG HCO3 ACT 23.5 mmol/L (22.0-26.0); BG METHEMOGLOBIN 0.3 % (0.0-1.5); BG OXYGEN SATURATION 97.2 % (92.0-98.5); BG OXYHEMOGLOBIN 96.6 % (94.0-97.0); BG PCO2 32.8 mmHg (35.0-45.0); BG PH 7.473 (7.350-7.450); BG PRESSURE SUPPORT 8; BG SAMPLE SITE RIGHT RADIAL; BG TOTAL HEMOGLOBIN 8.5 g/dL (12.0-18.0); BG VENT MODE VENT - CPAP
[2016-06-23] MEDS: LORAZEPAM 2MG/ML CPJ IV PRN ×2 (12:15→20:31)
[2016-06-23] MEDS ORDERED: BLOOD SUGAR DIAGNOSTIC STRIP TEST SCH (12:50)
[2016-06-23] MEDS: LEVOFLOXACIN 500MG PREMIX 100 ML IV SCH (16:18)
[2016-06-24] VITALS (34 sets, daily range): BP systolic 98–156; BP diastolic 53–114
[2016-06-24] MEDS: IPRATROPIUM/ALBUTEROL 0.5-3(2.5)MG/3ML NEB INH SCH ×6 (00:15→20:42)
[2016-06-24] MEDS ORDERED: NOREPINEPHRINE 16 MG in DEXT 5% WATER 234 ML IV PRN (00:45)
[2016-06-24] MEDS ORDERED: SODIUM CHLORIDE 0.9% 500 ML IV ONE (00:45)
[2016-06-24] MEDS: BLOOD SUGAR DIAGNOSTIC STRIP TEST SCH ×5 (00:48→20:25)
[2016-06-24] MEDS: LORAZEPAM 2MG/ML CPJ IV PRN ×3 (02:01→23:40)
[2016-06-24] MEDS: OXYCODONE HCL/ACETAMINOPHEN 5/325MG TABLET PO PRN ×3 (04:54→20:57)
[2016-06-24] MEDS: INSULIN LISPRO 100 UNITS/ML SUBCUT SCH ×4 (06:06→20:53)
[2016-06-24 06:08] LABS: BASOPHILS % 0.6 % (0.0-2.0); EOSINOPHILS % 1.8 % (0.0-5.0); HEMATOCRIT. 24.5 % (36.0-48.0); HEMOGLOBIN. 8.1 g/dL (12.0-16.0); LYMPHOCYTES % 23.2 % (20.0-50.0); MEAN CORPUSCULAR HEMOGLOBIN 31.1 pg (28.0-32.0); MEAN CORPUSCULAR HGB CONC 33.2 g/dL (31.0-37.0); MEAN CORPUSCULAR VOLUME 93.5 fL (81.0-99.0); MEAN PLATELET VOLUME 9.5 fl (7.4-10.4); MONOCYTES % 7.7 % (2.0-8.0); NEUTROPHILS % 66.7 % (40.0-76.0); PLATELET 92 x1000/uL (130-400); RED BLOOD CELL COUNT 2.62 mill/uL (4.2-5.4); RED CELL DISTRIBUTION WIDTH 13.9 % (11.6-14.6); WHITE BLOOD COUNT 3.6 x1000/uL (4.5-11.0)
[2016-06-24 07:11] LABS: ANION GAP 12; CALCIUM 8.1 mg/dL (8.5-10.1); CARBON DIOXIDE 28 mEq/L (21-32); CHLORIDE 107 mEq/L (98-107); CREATINE KINASE 83 IU/L (26-192); INDEX HEMOLYSI 1 (1-3); INDEX ICTERIC 1 (1-4); INDEX LIPEMIC 1 (1-3); PHOSPHORUS 2.4 mg/dL (2.5-4.9); UREA NITROGEN BLOOD 9 mg/dL (7-21)
[2016-06-24 07:12] LABS: eGFR > 60 mL/min (>60)
[2016-06-24] MEDS ORDERED: POTASSIUM CHLORIDE 20MEQ TABLET SR PO NR (08:15)
[2016-06-24] MEDS: QUETIAPINE FUMARATE 25MG TABLET PO SCH ×2 (08:56→20:21)
[2016-06-24] MEDS: METRONIDAZOLE 500 MG PREMIX 100 ML IV SCH (08:56)
[2016-06-24] MEDS: DOCUSATE SODIUM SUGAR FREE 100MG/10ML UDC NG SCH ×3 (08:56→16:53)
[2016-06-24] MEDS: PANTOPRAZOLE SODIUM 40 MG/VIAL IV SCH (08:56)
[2016-06-24] MEDS: ENOXAPARIN 40MG/0.4ML SYR SUBCUT SCH (08:57)
[2016-06-24] MEDS ORDERED: POTASSIUM CHLORIDE 20 MEQ/PACKET GT SCH (09:00)
[2016-06-24 11:08] LABS: BG BASE EXCESS -0.5 mmol/L (-2.0-2.0); BG CARBOXYHEMOGLOBIN 0.3 % (0.5-1.5); BG DEOXYHEMOGLOBIN 2.9 % (0.0-5.0); BG FRACTION INSPIRED OXYGEN 40; BG HCO3 ACT 23.3 mmol/L (22.0-26.0); BG METHEMOGLOBIN 0.3 % (0.0-1.5); BG OXYGEN SATURATION 97.1 % (92.0-98.5); BG OXYHEMOGLOBIN 96.5 % (94.0-97.0); BG PCO2 34.6 mmHg (35.0-45.0); BG PH 7.446 (7.350-7.450); BG PO2 162.3 mmHg (75.0-100.0); BG PRESSURE SUPPORT 8; BG SAMPLE SITE LEFT BRACHIAL; BG TOTAL HEMOGLOBIN 8.2 g/dL (12.0-18.0); BG VENT MODE VENT - CPAP
[2016-06-24] MEDS: SODIUM CHLORIDE 0.45% 1,000 ML IV SCH (13:37)
[2016-06-25] VITALS (35 sets, daily range): BP systolic 102–159; BP diastolic 51–119
[2016-06-25] MEDS: IPRATROPIUM/ALBUTEROL 0.5-3(2.5)MG/3ML NEB INH SCH ×6 (00:16→20:34)
[2016-06-25] MEDS: OXYCODONE HCL/ACETAMINOPHEN 5/325MG TABLET PO PRN (03:42)
[2016-06-25 06:01] LABS: BASOPHILS % 0.5 % (0.0-2.0); EOSINOPHILS % 4.1 % (0.0-5.0); HEMATOCRIT. 24.2 % (36.0-48.0); HEMOGLOBIN. 8.2 g/dL (12.0-16.0); LYMPHOCYTES % 22.9 % (20.0-50.0); MEAN CORPUSCULAR HEMOGLOBIN 31.3 pg (28.0-32.0); MEAN CORPUSCULAR HGB CONC 33.7 g/dL (31.0-37.0); MEAN PLATELET VOLUME 9.4 fl (7.4-10.4); MONOCYTES % 6.4 % (2.0-8.0); NEUTROPHILS % 66.1 % (40.0-76.0); PLATELET 93 x1000/uL (130-400); RED CELL DISTRIBUTION WIDTH 14.2 % (11.6-14.6); WHITE BLOOD COUNT 3.3 x1000/uL (4.5-11.0)
[2016-06-25 06:27] LABS: ANION GAP 12; CARBON DIOXIDE 28 mEq/L (21-32); CHLORIDE 106 mEq/L (98-107); INDEX HEMOLYSI 1 (1-3); INDEX ICTERIC 1 (1-4); INDEX LIPEMIC 1 (1-3); UREA NITROGEN BLOOD 8 mg/dL (7-21); eGFR > 60 mL/min (>60)
[2016-06-25] MEDS: LORAZEPAM 2MG/ML CPJ IV PRN (06:35)
[2016-06-25] MEDS: BLOOD SUGAR DIAGNOSTIC STRIP TEST SCH ×4 (07:25→21:08)
[2016-06-25] MEDS ORDERED: POTASSIUM CHLORIDE 20 MEQ/PACKET NG NR (08:00)
[2016-06-25] MEDS: INSULIN LISPRO 100 UNITS/ML SUBCUT SCH ×4 (08:24→21:13)
[2016-06-25] MEDS: DOCUSATE SODIUM SUGAR FREE 100MG/10ML UDC NG SCH ×2 (08:26→16:20)
[2016-06-25] MEDS: PANTOPRAZOLE SODIUM 40 MG/VIAL IV SCH (08:26)
[2016-06-25] MEDS: QUETIAPINE FUMARATE 25MG TABLET PO SCH (08:26)
[2016-06-25] MEDS: ENOXAPARIN 40MG/0.4ML SYR SUBCUT SCH (08:26)
[2016-06-25] MEDS: SODIUM CHLORIDE 0.45% 1,000 ML IV SCH (10:12)
[2016-06-25] MEDS: DIPHENHYDRAMINE 50MG/ML VIAL IV PRN (21:13)
[2016-06-26] VITALS (25 sets, daily range): BP systolic 119–163; BP diastolic 65–92
[2016-06-26] MEDS: IPRATROPIUM/ALBUTEROL 0.5-3(2.5)MG/3ML NEB INH SCH ×6 (00:23→21:36)
[2016-06-26] MEDS: DIPHENHYDRAMINE 50MG/ML VIAL IV PRN ×2 (01:21→22:27)
[2016-06-26 06:15] LABS: ANION GAP 13; CALCIUM 8.2 mg/dL (8.5-10.1); CARBON DIOXIDE 28 mEq/L (21-32); CHLORIDE 105 mEq/L (98-107); INDEX HEMOLYSI 1 (1-3); INDEX ICTERIC 1 (1-4); INDEX LIPEMIC 1 (1-3); UREA NITROGEN BLOOD 5 mg/dL (7-21); eGFR > 60 mL/min (>60)
[2016-06-26] MEDS: BLOOD SUGAR DIAGNOSTIC STRIP TEST SCH ×4 (07:40→21:24)
[2016-06-26] MEDS: PANTOPRAZOLE SODIUM 40 MG/VIAL IV SCH (08:33)
[2016-06-26] MEDS: DOCUSATE SODIUM SUGAR FREE 100MG/10ML UDC NG SCH ×2 (08:33→17:18)
[2016-06-26] MEDS: INSULIN LISPRO 100 UNITS/ML SUBCUT SCH ×4 (08:35→21:37)
[2016-06-26] MEDS: SODIUM CHLORIDE 0.45% 1,000 ML IV SCH ×2 (09:00→22:38)
[2016-06-26] MEDS ORDERED: ENOXAPARIN 40MG/0.4ML SYR SUBCUT SCH (09:00)
[2016-06-26] MEDS: OXYCODONE HCL/ACETAMINOPHEN 5/325MG TABLET PO PRN ×2 (10:15→16:10)
[2016-06-27] VITALS (14 sets, daily range): BP systolic 118–153; BP diastolic 72–95
[2016-06-27] MEDS: OXYCODONE HCL/ACETAMINOPHEN 5/325MG TABLET PO PRN ×2 (00:33→07:48)
[2016-06-27] MEDS: IPRATROPIUM/ALBUTEROL 0.5-3(2.5)MG/3ML NEB INH SCH ×6 (00:59→21:18)
[2016-06-27] MEDS: DIPHENHYDRAMINE 50MG/ML VIAL IV PRN ×2 (02:29→22:54)
[2016-06-27] MEDS: BLOOD SUGAR DIAGNOSTIC STRIP TEST SCH ×4 (05:52→21:39)
[2016-06-27 06:39] LABS: ANION GAP 12; CALCIUM 8.2 mg/dL (8.5-10.1); CARBON DIOXIDE 28 mEq/L (21-32); CHLORIDE 103 mEq/L (98-107); INDEX HEMOLYSI 1 (1-3); INDEX ICTERIC 1 (1-4); INDEX LIPEMIC 1 (1-3); eGFR > 60 mL/min (>60)
[2016-06-27 06:48] LABS: BASOPHILS % 0.3 % (0.0-2.0); EOSINOPHILS % 2.9 % (0.0-5.0); HEMATOCRIT. 24.5 % (36.0-48.0); HEMOGLOBIN. 8.2 g/dL (12.0-16.0); LYMPHOCYTES % 25.5 % (20.0-50.0); MEAN CORPUSCULAR HEMOGLOBIN 31.2 pg (28.0-32.0); MEAN CORPUSCULAR HGB CONC 33.6 g/dL (31.0-37.0); MEAN CORPUSCULAR VOLUME 92.8 fL (81.0-99.0); MEAN PLATELET VOLUME 9.4 fl (7.4-10.4); MONOCYTES % 6.6 % (2.0-8.0); NEUTROPHILS % 64.7 % (40.0-76.0); PLATELET 103 x1000/uL (130-400); RED BLOOD CELL COUNT 2.64 mill/uL (4.2-5.4); RED CELL DISTRIBUTION WIDTH 14.3 % (11.6-14.6); WHITE BLOOD COUNT 3.4 x1000/uL (4.5-11.0)
[2016-06-27 06:50] LABS: UREA NITROGEN BLOOD 4 mg/dL (7-21)
[2016-06-27] MEDS: INSULIN LISPRO 100 UNITS/ML SUBCUT SCH ×4 (07:49→21:48)
[2016-06-27] MEDS: SODIUM CHLORIDE 0.45% 1,000 ML IV SCH (07:55)
[2016-06-27] MEDS: DOCUSATE SODIUM SUGAR FREE 100MG/10ML UDC NG SCH ×2 (08:00→16:37)
[2016-06-27] MEDS: PANTOPRAZOLE SODIUM 40 MG/VIAL IV SCH (08:00)
[2016-06-27] MEDS ORDERED: POTASSIUM CHLORIDE 20MEQ TABLET SR PO NR (10:45)
[2016-06-27] MEDS: ALPRAZOLAM 0.25 MG TABLET PO PRN (12:26)
[2016-06-27] MEDS: OMEPRAZOLE 20MG CAPSULE EXTENDED RELEASE PO SCH (21:48)
[2016-06-28] VITALS (14 sets, daily range): BP systolic 102–156; BP diastolic 64–96
[2016-06-28] MEDS: IPRATROPIUM/ALBUTEROL 0.5-3(2.5)MG/3ML NEB INH SCH ×6 (00:54→20:40)
[2016-06-28] MEDS: DIPHENHYDRAMINE 50MG/ML VIAL IV PRN ×2 (03:16→23:18)
[2016-06-28] MEDS: BLOOD SUGAR DIAGNOSTIC STRIP TEST SCH ×4 (06:24→20:27)
[2016-06-28] MEDS: OMEPRAZOLE 20MG CAPSULE EXTENDED RELEASE PO SCH ×2 (06:29→20:58)
[2016-06-28] MEDS: INSULIN LISPRO 100 UNITS/ML SUBCUT SCH ×5 (08:29→20:51)
[2016-06-28] MEDS: DOCUSATE SODIUM SUGAR FREE 100MG/10ML UDC NG SCH ×2 (08:30→16:49)
[2016-06-28] MEDS: OXYCODONE HCL/ACETAMINOPHEN 5/325MG TABLET PO PRN ×2 (08:30→17:55)
[2016-06-28] MEDS: SODIUM CHLORIDE 0.45% 1,000 ML IV SCH (08:30)
[2016-06-29] VITALS (11 sets, daily range): BP systolic 117–151; BP diastolic 73–94
[2016-06-29] MEDS: IPRATROPIUM/ALBUTEROL 0.5-3(2.5)MG/3ML NEB INH SCH ×6 (00:38→20:00)
[2016-06-29] MEDS: OXYCODONE HCL/ACETAMINOPHEN 5/325MG TABLET PO PRN ×2 (04:04→21:54)
[2016-06-29] MEDS: BLOOD SUGAR DIAGNOSTIC STRIP TEST SCH ×4 (06:03→21:58)
[2016-06-29] MEDS: OMEPRAZOLE 20MG CAPSULE EXTENDED RELEASE PO SCH ×2 (06:04→21:54)
[2016-06-29 06:38] LABS: BASOPHILS % 0.3 % (0.0-2.0); EOSINOPHILS % 2.2 % (0.0-5.0); HEMATOCRIT. 25.4 % (36.0-48.0); HEMOGLOBIN. 8.5 g/dL (12.0-16.0); LYMPHOCYTES % 21.3 % (20.0-50.0); MEAN CORPUSCULAR HEMOGLOBIN 31.1 pg (28.0-32.0); MEAN CORPUSCULAR HGB CONC 33.4 g/dL (31.0-37.0); MEAN CORPUSCULAR VOLUME 93.3 fL (81.0-99.0); MEAN PLATELET VOLUME 10.1 fl (7.4-10.4); MONOCYTES % 6.1 % (2.0-8.0); NEUTROPHILS % 70.1 % (40.0-76.0); PLATELET 123 x1000/uL (130-400); RED BLOOD CELL COUNT 2.72 mill/uL (4.2-5.4); RED CELL DISTRIBUTION WIDTH 15.2 % (11.6-14.6); WHITE BLOOD COUNT 3.9 x1000/uL (4.5-11.0)
[2016-06-29] MEDS: INSULIN LISPRO 100 UNITS/ML SUBCUT SCH ×4 (06:38→21:56)
[2016-06-29 06:47] LABS: CALCIUM 8.4 mg/dL (8.5-10.1); CARBON DIOXIDE 25 mEq/L (21-32); INDEX HEMOLYSI 1 (1-3); INDEX ICTERIC 1 (1-4); INDEX LIPEMIC 1 (1-3); UREA NITROGEN BLOOD 9 mg/dL (7-21); eGFR > 60 mL/min (>60)
[2016-06-29] MEDS: INSULIN DETEMIR UD 100 UNITS/ML SYR SUBCUT SCH ×2 (06:47→21:57)
[2016-06-29 07:00] LABS: ANION GAP 16; CHLORIDE 102 mEq/L (98-107)
[2016-06-29] MEDS: SODIUM CHLORIDE 0.45% 1,000 ML IV SCH (08:34)
[2016-06-29] MEDS: DOCUSATE SODIUM SUGAR FREE 100MG/10ML UDC NG SCH ×2 (08:34→17:39)
[2016-06-30] VITALS (12 sets, daily range): BP systolic 91–157; BP diastolic 57–93
[2016-06-30] MEDS: IPRATROPIUM/ALBUTEROL 0.5-3(2.5)MG/3ML NEB INH SCH ×6 (00:15→21:00)
[2016-06-30] MEDS: ALPRAZOLAM 0.25 MG TABLET PO PRN (01:53)
[2016-06-30] MEDS: OXYCODONE HCL/ACETAMINOPHEN 5/325MG TABLET PO PRN ×2 (03:25→08:47)
[2016-06-30] MEDS: BLOOD SUGAR DIAGNOSTIC STRIP TEST SCH ×4 (06:31→21:35)
[2016-06-30] MEDS: OMEPRAZOLE 20MG CAPSULE EXTENDED RELEASE PO SCH ×2 (06:33→20:45)
[2016-06-30] MEDS: DOCUSATE SODIUM SUGAR FREE 100MG/10ML UDC NG SCH ×2 (08:47→17:00)
[2016-06-30] MEDS: SODIUM CHLORIDE 0.45% 1,000 ML IV SCH (08:47)
[2016-06-30] MEDS: INSULIN LISPRO 100 UNITS/ML SUBCUT SCH ×4 (08:48→21:34)
[2016-06-30 12:25] LABS: ALBUMIN 3.6 g/dL (3.4-5.0); BILIRUBIN DIRECT 0.4 mg/dL (0.0-0.2)
[2016-06-30] MEDS ORDERED: LORAZEPAM 2MG/ML CPJ IV SCH (12:45)
[2016-06-30] MEDS: RISPERIDONE 1MG TABLET PO SCH (20:45)
[2016-06-30] MEDS: INSULIN DETEMIR UD 100 UNITS/ML SYR SUBCUT SCH (21:35)
[2016-06-30] MEDS: DIPHENHYDRAMINE 50MG/ML VIAL IV PRN (21:41)
[2016-06-30] MEDS: ACETAMINOPHEN 325MG TABLET PO PRN (21:41)
[2016-07-01] VITALS (9 sets, daily range): BP systolic 100–127; BP diastolic 56–82
[2016-07-01] MEDS: IPRATROPIUM/ALBUTEROL 0.5-3(2.5)MG/3ML NEB INH SCH ×4 (00:48→13:22)
[2016-07-01] MEDS: OMEPRAZOLE 20MG CAPSULE EXTENDED RELEASE PO SCH (05:38)
[2016-07-01] MEDS: OXYCODONE HCL/ACETAMINOPHEN 5/325MG TABLET PO PRN ×2 (05:38→11:51)
[2016-07-01] MEDS: BLOOD SUGAR DIAGNOSTIC STRIP TEST SCH ×2 (07:21→11:43)
[2016-07-01] MEDS: RISPERIDONE 1MG TABLET PO SCH (07:34)
[2016-07-01] MEDS: DOCUSATE SODIUM SUGAR FREE 100MG/10ML UDC NG SCH (07:34)
[2016-07-01] MEDS: INSULIN LISPRO 100 UNITS/ML SUBCUT SCH ×2 (07:35→11:50)
[2016-07-01] MEDS: SODIUM CHLORIDE 0.45% 1,000 ML IV SCH (07:35)
[2016-07-02] MEDS ORDERED: FAMOTIDINE 20MG TABLET PO SCH (09:00)
== END 2016-07-01 16:05 | disposition home or self-care (01) | DRG 812 ==
LOC: ER 01:29 → CVICU 04:21 → 3WST 06-26 09:42
PROVIDERS: ADMIT Internal Medicine; ATTEND Internal Medicine
PROC: 5A1955Z Respiratory Ventilation, Greater than 96 Consecutive Hours (ICD-10-PCS; principal; 2016-06-16)
PROC: 0BH18EZ Insertion of Endotracheal Airway into Trachea, Via Natural or Artificial Opening Endoscopic (ICD-10-PCS; 2016-06-16)
DX: T42.4X1A Poisoning by benzodiazepines, accidental (unintentional), initial encounter (principal); J96.00 Acute respiratory failure, unspecified whether with hypoxia or hypercapnia; J69.0 Pneumonitis due to inhalation of food and vomit; G92 Toxic encephalopathy; A41.9 Sepsis, unspecified organism; J15.4 Pneumonia due to other streptococci; D61.818 Other pancytopenia; T40.601A Poisoning by unspecified narcotics, accidental (unintentional), initial encounter; E11.65 Type 2 diabetes mellitus with hyperglycemia; E83.39 Other disorders of phosphorus metabolism; K21.9 Gastro-esophageal reflux disease without esophagitis; I10 Essential (primary) hypertension; F41.9 Anxiety disorder, unspecified; B95.7 Other staphylococcus as the cause of diseases classified elsewhere; M62.82 Rhabdomyolysis; E78.5 Hyperlipidemia, unspecified; Z79.891 Long term (current) use of opiate analgesic; Z88.6 Allergy status to analgesic agent; Z88.1 Allergy status to other antibiotic agents; Z88.8 Allergy status to other drugs, medicaments and biological substances; Z90.49 Acquired absence of other specified parts of digestive tract; Z90.710 Acquired absence of both cervix and uterus; Z86.718 Personal history of other venous thrombosis and embolism; Y92.89 Other specified places as the place of occurrence of the external cause
CPT/HCPCS: 31500; 36415; 36556; 36600; 43753; 70450; 71010; 74000; 80048; 80053; 80061; 80076; 80202; 80305; 80307; 80329; 81003; 82140; 82248; 82270; 82375; 82550; 82553; 82607; 82728; 82746; 82805; 82962; 83036; 83540; 83550; 83605; 83735; 83880; 84100; 84439; 84443; 84478; 84484; 85025; 85362; 85379; 85384; 85610; 86022; 86705; 86709; 86803; 87040; 87070; 87077; 87086; 87340; 92610; 93005; 93306; 93970; 94002; 94003; 94640; 96374; 96375; 97116; 97163; 97167; 97530; 99291; A4216; A6261; C9113; G0482; J0330; J1200; J1650; J1815; J1956; J2060; J2185; J2270; J2405; J2543; J2704; J3010; J3370; J3411; J3490; J7030; J7040; J7050; J7060; J7070; J7608; J7620